=== PATIENT | female | born 1965 | race African-American/Black ===

== ENCOUNTER 2016-11-23 15:46 | Emergency (ER) | payer MEDICAID, OTHER ==
[2016-11-23] MEDS ORDERED: diphenhydrAMINE HCL 50 MG/ML VIAL IV ONE (16:04)
[2016-11-23] MEDS ORDERED: MORPHINE SULFATE 4 MG/ML SYRG IV ONE ×2 (16:04→17:09)
[2016-11-23] MEDS ORDERED: KETOROLAC TROMETHAMINE 30 MG/ML VIAL IV ONE (16:05)
[2016-11-23] MEDS ORDERED: MORPHINE SULFATE 4 MG/ML SYRG ONE ×2 (16:11→17:20)
[2016-11-23] MEDS ORDERED: diphenhydrAMINE HCL 50 MG/ML VIAL ONE (16:12)
[2016-11-23] MEDS ORDERED: KETOROLAC TROMETHAMINE 30 MG/ML VIAL ONE (16:12)
[2016-11-23] MEDS ORDERED: ORPHENADRINE CITRATE 30 MG/ML VIAL IV ONE (17:08)
[2016-11-23 17:12] LABS: Hematocrit 47.2 % (37.0-47.0); Hemoglobin 15.9 gm/dL (12.5-16.0); Mean Cell Volume 89.6 fl (78-100); Mean Corpuscular Hemoglobin 30.2 pg (27-31); Mean Corpuscular Hgb Conc 33.7 g/dl (32-36); Neutrophil # 4.3 K/mm3 (1.3-6.0); Neutrophil % 66.5 % (42-75.0); Platelet Count 198 K/mm3 (150-450); Red Blood Count 5.27 M/mm3 (4.2-5.4); Red Cell Distribution Width 13.4 % (11.5-14.0); White Blood Count 6.4 K/mm3 (4.0-10.5)
[2016-11-23 17:16] LABS: Urine Bilirubin Negative (NEGATIVE); Urine Blood Negative /ul (NEGATIVE); Urine Ketone Negative (NEGATIVE); Urine Nitrite Negative (NEGATIVE); Urine Protein Negative (NEGATIVE); Urine Urobilinogen Normal (NORMAL); Urine pH 6.5 pH (5.0-7.0)
[2016-11-23] MEDS ORDERED: ORPHENADRINE CITRATE 30 MG/ML VIAL ONE (17:20)
[2016-11-23 17:29] LABS: Albumin * 4.1 gm/dl (3.4-5.0); Anion Gap 13.2 mmol/L (6.8-13.8); BUN/Creatinine Ratio 9.4 (9.0-21.6); Bilirubin, Total 0.4 mg/dL (0.0-1.1); Ca. Corrected For Albumin 8.5 mg/dL (8.4-10.2); Calcium * 8.9 mg/dL (7.9-10.9); Carbon Dioxide 28.4 mmol/L (24-32.6); Potassium 3.6 mmol/L (3.4-4.6); Total Protein 7.7 gm/dL (6.2-8.2)
[2016-11-23 17:36] LABS: Urine Appearance Clear; Urine Bacteria TRACE; Urine Color Yellow; Urine RBC 0-5 /hpf (0-5); Urine WBC 0-5 /hpf (0-5)
--- NOTE | 2016-11-23 18:16 | ERNOTE ---
<Viral Palacios - Last Filed: 11/23/16 18:03> Back Pain ER HPI Date of Service: 11/23/16 Presenting Symptoms: other - back and abdominal pain Time Seen by Provider: 11/23/16 16:00 Source: patient Exam Limitations: no limitations Immunizations: IMMUNIZATION HX Immunizations Up to Date Yes History of Influenza Vaccine Yes Hx Pneumococcal Vaccination No Allergies/Adverse Reactions: Allergies No Known Allergies Allergy (Unverified 11/23/16 15:56) Home Medications: HOME MEDICATIONS Albuterol Sulfate [Proair Hfa] 2 puff IH QID PRN 11/23/16 [Last Taken Unknown] Gabapentin 300 mg PO TID 11/23/16 [Last Taken Unknown] Methylprednisolone [Medrol Dosepak] 4 mg PO DAILY #21 tab.ds.pk 11/23/16 [Last Taken Unknown] Omeprazole 20 mg PO DAILY 11/23/16 [Last Taken Unknown] traMADol HCL [Tramadol HCl] 100 mg PO PRN PRN 11/23/16 [Last Taken Unknown] Narrative: Patient presents to the ED for back and abdominal pain. She relates back pain and diffuse abdominal pain. The pain is severe. The pain in the back is across her low back. it is worse with movement and bending. She has pain that radiates into both anterior thighs. She feels weak but she thinks this is due to pain. She also has severe mid-abdominal pain. No loss of bowel or bladder control. Nausea, no vomiting. no Cp or SOB. no fall or injury. She denies being seen for this pain. no loss of bowel or bladder control. Timing: Reports: constant, getting worse Quality/Severity: Reports: severe Location of pain: Reports: lower back, other - abdomen Recent Injury?: Reports: no Possible Precipitating Factor: Reports: other - no injury noted Modifying Factors - (Improves): Reports: other - rest Modifying Factors - (Worsens): Reports: movement to right, movement to left, movement flexion Associated Symptoms: Reports: nausea/vomiting. Denies: fever/chills, constipation/incontinence, problems urinating Prior Treament: Denies: recently seen Review of Systems - Review of Systems Constitutional: Absent: fever Respiratory: Absent: shortness of breath Cardiology: Absent: chest pain Gastrointestinal/Abdominal: Present: See HPI Genitourinary: Absent: dysuria Musculoskeletal: Present: See HPI Skin: Absent: rash Neurological: Present: other - weakness but she thinks this is due to pain All Other Systems: All systems neg except as marked - Patient's Past Medical History Patient History - Medical: No pertinent hx Patient History - Cardiac/Respiratory: Hypertension Patient History - Cancer: No Hx of Cancer Patient History - Surgical Procedures: Hysterectomy, Hernia Repair Patient History - Other: None LMP (females 10-50): years ago hysterectomy - Social History Living Situations: home Psych History: No pertinent hx Smoking Status: Current every day smoker Alcohol Use: occasionally Drug Use: cocaine, marijuana - Immunizations Immunizations Up to Date: Yes Hx Pneumococcal Vaccination: No History of Influenza Vaccine: Yes Physical Exam - Physical Exam General Appearance: Present: alert, other - slow to move and grimaces with transfer and movement Head Exam: Present: normal inspection, no evidence of injury Eye Exam: Normal inspection: bilateral, PERRL: bilateral Ears, Nose, Throat: Present: normal ENT inspection Neck: Present: normal inspection Respiratory: Present: no respiratory distress, normal breath sounds, lungs clear Cardiovascular/Chest: Present: regular rate, rhythm, normal peripheral pulses Gastrointestinal/Abdominal: Present: normal bowel sounds, soft, other - moderate tendenress mid abdomen, no clear peritoneal signs Rectal Exam: Present: nontender, normal rectal tone, other - good rectal tone noted. Back Exam: Present: normal inspection, no vertebral tenderness, other - Thre is significant muscular tenderness bilateral low back musculature. no localizing point vertebral tenderenss. palpation of the low back musculature seems to reproduce her pain Extremity Exam: Present: normal inspection, no edema Neurological Exam: Present: alert, normal mood/affect, other - Pain seems to limit exam somewhat but patient can hold both legs off the bed against gravity, has strong and equal/symmetric dorsi and plantar flexion strngth at the ankles. Normal, equal and symmetric patellar tendon reflexes. Normal rectal tone. No clinical evidence of cauda equina syndrome at this time. Skin Exam: Present: normal color, warm/dry ED Progress - Results and Orders Patient's Lab Results:: I have reviewed the patient's lab results. - Vital Signs Patient's Vital Signs:: I have reviewed the patient's vital signs. Vital Signs: Vital Signs 11/23/16 11/23/16 15:51 17:21 Temperature 35.8 C L 36.5 C Pulse Rate 55 L 50 L Respiratory 22 H 16 Rate Blood Pressure 140/68 142/86 O2 Sat by Pulse 100 Oximetry - X-Ray X-Ray #1 X-Ray: abdomen Interpretation: Interp. by me X-ray Comments: I revieweed official radiology report X-Ray #2 X-Ray: lumbosacral Interpretation: Interp. by me X-ray Comments: i reviewed official radiology report. - Progress/Reassessment Chief Complaint: Back Pain Progress Note-Subjective: 11/23/16 18:14 Nothign on exam that is c/w cauda equina syndrome. Good rectal tone, reproducible Sx with palpation of low back musculature, good reflexes and strength/sensation given her pain. She was quite tender in the abdomen though and I have ordered a CT to ensure no abdominal process causing her back pain. Checked out to Dr Acevedo pending further w/u. Please see his note. - Transfer of Care Physician Sign Out: Viral Palacios Receiving Physician: Biju Acevedo Pending Results: CT/MRI results, Pain-control Departure Clinical Impression: Back pain Qualifiers: Back pain location: low back pain Chronicity: acute Back pain laterality: bilateral Sciatica presence: with sciatica Sciatica laterality: bilateral sciatica Qualified Code(s): M54.42 - Lumbago with sciatica, left side Abdominal pain Qualifiers: Abdominal location: generalized Qualified Code(s): R10.84 - Generalized abdominal pain - Departure Disposition: Home Follow Up Needed Condition: Stable Instructions: Sciatica, [id number] Additional Instructions: See your primary care doctor for follow up. Prescriptions: Methylprednisolone [Medrol Dosepak] 4 mg PO DAILY #21 tab.ds.pk <Biju Acevedo - Last Filed: 11/24/16 00:30> Back Pain ER HPI Immunizations: IMMUNIZATION HX Immunizations Up to Date Yes History of Influenza Vaccine Yes Hx Pneumococcal Vaccination No ED Progress - Results and Orders Patient's Lab Results:: I have reviewed the patient's lab results. Results and Orders: Laboratory Tests 11/23/16 11/23/16 11/23/16 17:00 17:10 17:10 WBC 6.4 Hgb 15.9 Hct 47.2 H Plt Count 198 Sodium 140 Potassium 3.6 BUN 9 Creatinine 0.96 Calcium 8.9 Urine Color Yellow Urine Appearance Clear Urine pH 6.5 Ur Specific [place] 1.020 Urine Protein Negative Urine Glucose (UA) Negative Urine Ketones Negative Urine Blood Negative Urine Nitrate Negative Urine Bilirubin Negative Urine Urobilinogen Normal Ur Leukocyte Esterase Negative Urine RBC 0-5 Urine WBC 0-5 Ur Epithelial Cells 0-5 Urine Bacteria Trace Urine Culture Comments No culture indicated Stool Occult Blood Urine Opiates Screen Barbiturate Screen Ur Phencyclidine Scrn Urine Amphetamine U Benzodiazepines Scrn Urine Cocaine Screen Urine Marijuana (THC) 11/23/16 11/23/16 17:55 19:09 WBC Hgb Hct Plt Count Sodium Potassium BUN Creatinine Calcium Urine Color Urine Appearance Urine pH Ur Specific [place] Urine Protein Urine Glucose (UA) Urine Ketones Urine Blood Urine Nitrate Urine Bilirubin Urine Urobilinogen Ur Leukocyte Esterase Urine RBC Urine WBC Ur Epithelial Cells Urine Bacteria Urine Culture Comments Stool Occult Blood Negative Urine Opiates Screen Positive H Barbiturate Screen Negative Ur Phencyclidine Scrn Negative Urine Amphetamine Negative U Benzodiazepines Scrn Negative Urine Cocaine Screen Positive H Urine Marijuana (THC) Positive H - Vital Signs Vital Signs: Vital Signs 11/23/16 11/23/16 11/23/16 15:51 17:21 18:25 Temperature 35.8 C L 36.5 C 36.6 C Pulse Rate 55 L 50 L 50 L Respiratory 22 H 16 16 Rate Blood Pressure 140/68 142/86 140/86 O2 Sat by Pulse 100 99 Oximetry 11/23/16 19:04 Temperature Pulse Rate 53 L Respiratory 16 Rate Blood Pressure 136/86 O2 Sat by Pulse 99 Oximetry - CT/Ultrasound CT/Ultrasound Narrative: CT abd/pelvis: FINDINGS: Exam is limited due to lack of IV contrast. There is some linear atelectasis within the lung bases. Visualized solid abdominal organs are grossly unremarkable aside from a hypodense lesion within the liver which may be a cyst but is suboptimally evaluated. No definitive evidence for intestinal obstruction. There is fecal material seen within the colon. Bladder is unremarkable. No free air or free fluid. No loculated fluid collections. Osseous structures demonstrate no suspicious abnormality. IMPRESSION: 1. No identifiable acute intra-abdominal or pelvic process on this limited exam Electronically signed by Souleymane Tellez M.D.. - Progress/Reassessment Progress Note-Subjective: 11/23/16 20:26 Pt refused to have CT scan only after she drank the contrast and was taken to the CT suite. She came back from CT stating that she is very claustrophobic and has never allowed anyone to do a CT on her. When asked why she went through the prep and didn't mention this before she said she wasn't thinking well due to all the pain medications she has been given. I offered her anti- anxiety medication to help her claustrophobia and at first she said you will have to "knock me out" before I could get in there. I explained that she needed to be conscious and that we didn't have anesthesia here in order to sedate her to that level. She then agreed to have the CT done. Ativan IV ordered and radiology contacted to take her back to CT for another try. Pt was awake and alert and appeared to be in no acute distress. She sat up on the bet without difficulty or obvious pain. Pt not examined further at this time 11/24/16 00:27 Pt was able to relax for non contrast CT but became anxious and refused the contrasted portion. CT did not show any significant pathology and pt's pain was improved. discussed corticosteroids for sciatica, pt agreed.
[2016-11-23] MEDS ORDERED: DIATRIZOATE MEGLUMINE, SODIUM 30 ML BTL ONE (18:20)
[2016-11-23] MEDS ORDERED: DIATRIZOATE MEGLUMINE, SODIUM 30 ML BTL PO ONE (18:21)
[2016-11-23] MEDS ORDERED: HYDROmorphone HCL 1 MG/ML DISP.SYRIN IV ONE (18:43)
[2016-11-23] MEDS ORDERED: HYDROmorphone HCL 1 MG/ML DISP.SYRIN ONE (18:46)
[2016-11-23 19:24] LABS: Urine Barbiturate Negative (NEGATIVE); Urine Benzodiazepines Negative (NEGATIVE); Urine PCP Negative (NEGATIVE)
[2016-11-23 19:27] LABS: Cocaine Ur Positive (NEGATIVE); Urine Opiates Positive (NEGATIVE); Urine THC Positive (NEGATIVE)
[2016-11-23] MEDS ORDERED: LORazepam 2 MG/ML DISP.SYRIN IV ONE (20:25)
[2016-11-23] MEDS ORDERED: LORazepam 2 MG/ML DISP.SYRIN ONE (20:28)
[2016-11-23 21:50] VITALS: BP 152/92
[2016-11-23] MEDS ORDERED: METHYLPREDNISOLONE SOD SUCC/PF 125 MG/2 ML VIAL IV ONE (22:03)
[2016-11-23] MEDS ORDERED: METHYLPREDNISOLONE SOD SUCC/PF 125 MG/2 ML VIAL ONE ×2 (22:06→22:08)
== END 2016-11-23 22:14 | disposition home or self-care (01) ==
LOC: ER 15:46
DX: M54.42 Lumbago with sciatica, left side (principal); R10.84 Generalized abdominal pain; I10 Essential (primary) hypertension; F17.200 Nicotine dependence, unspecified, uncomplicated

== ENCOUNTER 2016-11-27 18:31 | Emergency (ER) | payer MEDICAID ==
[2016-11-27] MEDS ORDERED: KETOROLAC TROMETHAMINE 60 MG/2 ML VIAL IM ONE ×2 (18:54→18:57)
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
[2016-11-27 19:59] VITALS: BP 122/68
== END 2016-11-27 20:31 | disposition home or self-care (01) ==
LOC: ER 18:31
PROC: 0RSWXZZ Reposition Right Finger Phalangeal Joint, External Approach (ICD-10-PCS; principal; 2016-11-27)
PROC: 0JQJ0ZZ Repair Right Hand Subcutaneous Tissue and Fascia, Open Approach (ICD-10-PCS; 2016-11-27)
DX: S63.259A Unspecified dislocation of unspecified finger, initial encounter (principal); S61.214A Laceration without foreign body of right ring finger without damage to nail, initial encounter; X58.XXXA Exposure to other specified factors, initial encounter; Y93.I9 Activity, other involving external motion; Y92.9 Unspecified place or not applicable; F17.200 Nicotine dependence, unspecified, uncomplicated; I10 Essential (primary) hypertension